=== PATIENT | female | born 1975 | race Caucasian/White ===

== ENCOUNTER 2019-08-20 01:28 | Emergency (ER) | payer MEDICAID ==
[~2019-08-20] VITALS: Ht 165.1 cm; Wt 54.0 kg
--- NOTE | 2019-08-20 01:54 | NUR ---
Patient ambulated with stable gait. Speech clear, speaks in complete sentences. No neuro deficits noted. A/Ox4. Patient came for c/o lower right mouth pain, pain scale 10/10. Respiratory even and unlabored, no cough no sob. No cardiovascular distress, patient afebrile. Denies any n/v/d.
[2019-08-20] MEDS ORDERED: PANTOPRAZOLE SODIUM 40 MG TABLET.DR PO ONE ×2 (02:00→02:04)
[2019-08-20] MEDS ORDERED: ONDANSETRON 4 MG/2 ML VIAL IM ONE (02:00)
[2019-08-20] MEDS ORDERED: MORPHINE SULFATE 4 MG/1 ML DISP.SYRIN IM ONE (02:00)
[2019-08-20] MEDS ORDERED: MAG HYDROX/AL HYDROX/SIMETH 30 ML LIQUID UDC PO ONE (02:00)
[2019-08-20] MEDS ORDERED: MORPHINE SULFATE 4 MG/1 ML DISP.SYRIN ONE (02:04)
[2019-08-20] MEDS ORDERED: ONDANSETRON 4 MG/2 ML VIAL ONE (02:04)
[2019-08-20] MEDS ORDERED: MAG HYDROX/AL HYDROX/SIMETH 30 ML LIQUID UDC ONE (02:05)
--- NOTE | 2019-08-20 02:23 | NUR ---
Patient discharged to home in stable conditon. Written and verbal after care instructions given. Patient verbalizes understanding of instructions. Patient ambulated with stable gait. Instructed that patient will not be able to drive d/t medications given. She stated her bf will be the entry driver operator taking them home.
[2019-08-20 02:24] VITALS: BP 130/78
== END 2019-08-20 02:25 | disposition home or self-care (01) ==
LOC: ER 01:36
DX: K08.89 Other specified disorders of teeth and supporting structures (principal); K29.60 Other gastritis without bleeding; E03.9 Hypothyroidism, unspecified; Z91.040 Latex allergy status
CPT/HCPCS: 96372 ×2; 99283; J2270; J2405; A4663